=== PATIENT | female | born 1940 | race Caucasian/White ===

== ENCOUNTER → 2016-11-06 | Outpatient (CLI) | payer MEDICARE ==
[~2016-11-06] MED LIST: ACET325T14 PO; ACYC-113 PO; AZIT500T4 PO; CEFD300C2 PO; CHOL5000 PO; CHOL500015 PO; DEXT30DR5 LEFTEYE; DIPH1TAB PO; DORZ10DR PO; GABA300C10 PO; GUAI-103 PO; INFL100V IV; LATA2.5D2 RIGHTEYE; METO50TA82 PO; OMEP-110 PO; SERT100T5 PO; TIMO5DRO5 RIGHTEYE; WARF5TAB7 PO; WARF7.5T6 PO
== END | disposition home or self-care (01) ==
LOC: CFH 11:47
PROVIDERS: ATTEND Family Medicine
DX: R19.01 Right upper quadrant abdominal swelling, mass and lump (principal)
CPT/HCPCS: 76700

== ENCOUNTER 2018-01-20 20:40 | Inpatient (IN) | payer MEDICARE ==
[~2018-01-20] VITALS: Ht 170.2 cm; Wt 113.0 kg
[~2018-01-20 20:40] MED LIST changes: -AZIT500T4 PO; +AZIT500T5 PO; -CEFD300C2 PO; +CEFD300C37 PO; +WARF-36 PO; -WARF5TAB7 PO; +WARF7.5T46 PO; -WARF7.5T6 PO
[2018-01-20] MEDS ORDERED: SODIUM CHLORIDE FLUSH 10ML SYR IVF ONE (21:00)
[2018-01-20] MEDS ORDERED: SODIUM CHLORIDE 0.9% 1,000ML IVBOLUS ONE (21:00)
[2018-01-20 21:03] LABS: BASOPHILS # (AUTO) 0.04 x10^3/uL (0-0.1); BASOPHILS % (AUTO) 0 % (0-1); EOSINOPHILS # (AUTO) 0.31 x10^3/uL (0-0.4); EOSINOPHILS % (AUTO) 3 % (1-7); LYMPHOCYTES # (AUTO) 4.53 x10^3/uL (1-3.4); LYMPHOCYTES % (AUTO) 42 % (22-44); MD NO; MEAN CORPUSCULAR HGB CONC 33.5 g/dL (32.4-35.8); MEAN CORPUSCULAR VOLUME 92.6 fL (80-100); MEAN PLATELET VOLUME 7.6 fL (7.4-10.4); MONOCYTES % (AUTO) 10 % (2-9); NEUTROPHILS # (AUTO) 4.85 x10^3/uL (1.8-6.8); NEUTROPHILS % (AUTO) 45 % (42-75); PLATELET COUNT 277 x10^3/uL (130-400); RED BLOOD COUNT 4.39 x10^6/uL (3.82-5.3); RED CELL DISTRIBUTION WIDTH 14.1 % (9.6-15.2)
[2018-01-20 21:12] LABS: INTERNATIONAL NORMALIZED RATIO 2.37 (0.93-1.1)
[2018-01-20 21:14] LABS: ALANINE AMINOTRANSFERASE 21 U/L (12-78); ALBUMIN 3.7 g/dL (3.4-5.0); ANION GAP 9 mmol/L (5-15); CALCIUM 8.9 mg/dL (8.5-10.1); CHLORIDE 111 mmol/L (98-107); CREATININE 1.05 mg/dL (0.55-1.02)
[2018-01-20 21:19] LABS: ALKALINE PHOSPHATASE 101 U/L (45-117); BILIRUBIN,TOTAL 0.3 mg/dL (0.2-1.0); TOTAL PROTEIN 8.4 g/dL (6.4-8.2); TROPONIN I < 0.015 ng/mL (0.000-0.045)
[2018-01-21] MEDS ORDERED: TIMOLOL OPHTH 0.5%, 5ML RIGHTEYE SCH (00:30)
[2018-01-21] MEDS ORDERED: POLYETHYLENE GLYCOL 17 GM PACKET PO PRN (00:30)
[2018-01-21] MEDS ORDERED: BISACODYL 10 MG SUPP PR PRN (00:30)
[2018-01-21] MEDS ORDERED: ACETAMINOPHEN 325 MG TABLET PO PRN (00:30)
[2018-01-21] MEDS ORDERED: ONDANSETRON 2MG/ML, 2ML IVPush PRN ×2 (00:30)
[2018-01-21] MEDS ORDERED: ARTIFICIAL TEARS 15 DROP/ML BOTTLE LEFTEYE PRN (00:30)
[2018-01-21] MEDS ORDERED: SERTRALINE 100MG TABLET PO SCH (00:30)
[2018-01-21 00:36] VITALS: BP 150/99
[2018-01-21] MEDS ORDERED: GABAPENTIN 300 MG CAPSULE ONE (01:45)
[2018-01-21] MEDS ORDERED: GABAPENTIN 300 MG CAPSULE PO ONE (02:00)
[2018-01-21 05:08] LABS: BASOPHILS # (AUTO) 0.04 x10^3/uL (0-0.1); BASOPHILS % (AUTO) 0 % (0-1); EOSINOPHILS # (AUTO) 0.24 x10^3/uL (0-0.4); EOSINOPHILS % (AUTO) 3 % (1-7); LYMPHOCYTES # (AUTO) 3.47 x10^3/uL (1-3.4); LYMPHOCYTES % (AUTO) 38 % (22-44); MD NO; MEAN CORPUSCULAR HEMOGLOBIN 30.8 pg (27.0-34.8); MEAN CORPUSCULAR HGB CONC 33.4 g/dL (32.4-35.8); MEAN CORPUSCULAR VOLUME 92.2 fL (80-100); MONOCYTES # (AUTO) 0.87 x10^3/uL (0.2-0.8); MONOCYTES % (AUTO) 9 % (2-9); NEUTROPHILS # (AUTO) 4.59 x10^3/uL (1.8-6.8); NEUTROPHILS % (AUTO) 50 % (42-75); PLATELET COUNT 224 x10^3/uL (130-400); RED BLOOD COUNT 3.94 x10^6/uL (3.82-5.3); RED CELL DISTRIBUTION WIDTH 13.9 % (9.6-15.2)
[2018-01-21 05:20] LABS: ALBUMIN 3.1 g/dL (3.4-5.0); ANION GAP 5 mmol/L (5-15); CALCIUM 8.4 mg/dL (8.5-10.1); CHLORIDE 113 mmol/L (98-107)
[2018-01-21 05:23] LABS: ALANINE AMINOTRANSFERASE 15 U/L (12-78); ALKALINE PHOSPHATASE 81 U/L (45-117); BILIRUBIN,TOTAL 0.5 mg/dL (0.2-1.0); CREATININE 0.75 mg/dL (0.55-1.02); TROPONIN I < 0.015 ng/mL (0.000-0.045)
[2018-01-21 07:15] VITALS: BP 115/64
[2018-01-21] MEDS ORDERED: LATANOPROST OPHTH 0.005%, 2.5ML RIGHTEYE SCH (09:00)
[2018-01-21] MEDS ORDERED: OMEPRAZOLE 20 MG CAPSULE.DR PO SCH (09:00)
[2018-01-21] MEDS ORDERED: DORZOLAMIDE OPHTH 2%, 10ML EACHEYE SCH (09:00)
[2018-01-21] MEDS ORDERED: GABAPENTIN 300 MG CAPSULE PO SCH (09:00)
[2018-01-21] MEDS ORDERED: ACYCLOVIR 200 MG CAPSULE PO SCH (09:00)
[2018-01-21] MEDS ORDERED: TEMPLATE NON-FORMULARY MED. (Cholecalciferol (Vitamin D3)** (Vitamin D3**) 5,000 UNIT) PO SCH (09:00)
[2018-01-21] MEDS ORDERED: METOPROLOL TARTRATE 50 MG TABLET PO SCH (09:00)
[2018-01-21] MEDS ORDERED: CHOLECALCIFEROL 1,000 UNIT TABLET PO SCH (09:00)
[2018-01-21] MEDS ORDERED: SENNA/DOCUSATE TABLET PO SCH (09:00)
[2018-01-21] MEDS ORDERED: SODIUM CHLORIDE FLUSH 10ML SYR IVF SCH (09:00)
[2018-01-21] MEDS: LACTOBACILLUS CHEW TABLET PO SCH ×2 (09:30→16:18)
[2018-01-21 13:00] VITALS: BP 106/67
[2018-01-21 14:18] VITALS: BP 106/67
[2018-01-21] MEDS ORDERED: ACID1TAB7 PO (15:59)
[2018-01-21] MEDS ORDERED: WARFARIN 5 MG TABLET PO-COUM SCH (18:00)
[2018-01-22] MEDS ORDERED: WARFARIN 7.5 MG TABLET PO-COUM SCH (18:00)
== END 2018-01-21 16:56 | disposition home or self-care (01) | DRG 309 ==
LOC: ED 22:37 → EDIP 23:45 → 5SO 01-21 00:24 → DCLOUNGE 01-21 16:38
PROVIDERS: ADMIT Hospitalist; ATTEND Hospitalist
DX: I48.0 Paroxysmal atrial fibrillation (principal); D68.59 Other primary thrombophilia; I10 Essential (primary) hypertension; E78.5 Hyperlipidemia, unspecified; H40.9 Unspecified glaucoma; I45.10 Unspecified right bundle-branch block; K21.9 Gastro-esophageal reflux disease without esophagitis; Z96.652 Presence of left artificial knee joint; Z96.643 Presence of artificial hip joint, bilateral; K44.9 Diaphragmatic hernia without obstruction or gangrene; M06.9 Rheumatoid arthritis, unspecified; M19.90 Unspecified osteoarthritis, unspecified site; E66.01 Morbid (severe) obesity due to excess calories; M21.372 Foot drop, left foot; Z88.8 Allergy status to other drugs, medicaments and biological substances; Z91.041 Radiographic dye allergy status; Z90.49 Acquired absence of other specified parts of digestive tract; Z90.79 Acquired absence of other genital organ(s); Z90.722 Acquired absence of ovaries, bilateral; Z79.899 Other long term (current) drug therapy; Z86.718 Personal history of other venous thrombosis and embolism; Z79.01 Long term (current) use of anticoagulants; Z80.0 Family history of malignant neoplasm of digestive organs; Z90.710 Acquired absence of both cervix and uterus; Z82.49 Family history of ischemic heart disease and other diseases of the circulatory system; Z68.39 Body mass index [BMI] 39.0-39.9, adult
CPT/HCPCS: 36415; 71045; 80053; 83735; 84443; 84484; 85025; 85610; 85730; 93005; 93306; 93970; 99285; J7030

== ENCOUNTER 2018-02-21 09:31 | Inpatient (IN) | payer MEDICARE ==
[~2018-02-21] VITALS: Ht 170.2 cm; Wt 110.3 kg
[~2018-02-21 09:31] MED LIST changes: +ACID1TAB7 PO
[2018-02-21 09:56] VITALS: BP 140/86
[2018-02-21] MEDS ORDERED: PLEASE ENTER HEIGHT AND WEIGHT MC SCH (10:00)
[2018-02-21] MEDS ORDERED: ZOLPIDEM 5MG TABLET PO PRN ×2 (10:00→15:00)
[2018-02-21] MEDS ORDERED: DIPHENHYDRAMINE 50 MG CAPSULE PO PRN (10:00)
[2018-02-21 10:40] LABS: BASOPHILS # (AUTO) 0.05 x10^3/uL (0-0.1); BASOPHILS % (AUTO) 1 % (0-1); EOSINOPHILS # (AUTO) 0.19 x10^3/uL (0-0.4); EOSINOPHILS % (AUTO) 2 % (1-7); LYMPHOCYTES # (AUTO) 3.16 x10^3/uL (1-3.4); LYMPHOCYTES % (AUTO) 40 % (22-44); MD NO; MEAN CORPUSCULAR HEMOGLOBIN 30.9 pg (27.0-34.8); MEAN CORPUSCULAR HGB CONC 33.6 g/dL (32.4-35.8); MEAN PLATELET VOLUME 8.1 fL (7.4-10.4); MONOCYTES # (AUTO) 0.65 x10^3/uL (0.2-0.8); MONOCYTES % (AUTO) 8 % (2-9); NEUTROPHILS # (AUTO) 3.88 x10^3/uL (1.8-6.8); NEUTROPHILS % (AUTO) 49 % (42-75); PLATELET COUNT 258 x10^3/uL (130-400); RED BLOOD COUNT 4.22 x10^6/uL (3.82-5.3); RED CELL DISTRIBUTION WIDTH 14.2 % (9.6-15.2)
[2018-02-21 10:49] LABS: ALBUMIN 3.6 g/dL (3.4-5.0); ANION GAP 6 mmol/L (5-15); CHLORIDE 110 mmol/L (98-107)
[2018-02-21 10:53] LABS: ALANINE AMINOTRANSFERASE 15 U/L (12-78); ALKALINE PHOSPHATASE 74 U/L (45-117); BILIRUBIN,TOTAL 0.6 mg/dL (0.2-1.0); CREATININE 0.69 mg/dL (0.55-1.02); TOTAL PROTEIN 7.7 g/dL (6.4-8.2)
[2018-02-21 10:54] LABS: INTERNATIONAL NORMALIZED RATIO 1.34 (0.93-1.1); PROTHROMBIN TIME 13.9 Seconds (9.6-11.5)
[2018-02-21] MEDS ORDERED: FENTANYL PF 100 MCG/2ML ONE (11:57)
[2018-02-21] MEDS ORDERED: MIDAZOLAM 1 MG/ML, 2ML ONE ×2 (11:57→12:34)
[2018-02-21] MEDS ORDERED: CEFAZOLIN PMX 1GM/50ML 50 ML ONE (11:58)
[2018-02-21] MEDS ORDERED: LIDOCAINE-MPF 2% ,5ML ONE ×3 (11:58→12:58)
[2018-02-21] MEDS ORDERED: CEFAZOLIN 1,000 MG ONE (11:58)
[2018-02-21] MEDS ORDERED: CEFAZOLIN PMX 1GM/50ML 50 ML IVPB ONE ×2 (12:00→16:00)
[2018-02-21] MEDS ORDERED: DIPHENHYDRAMINE 50 MG/ML, 1ML ONE (12:34)
[2018-02-21 13:56] VITALS: BP 136/74
[2018-02-21] MEDS: SODIUM CHLORIDE 0.9% 1,000 ML IV SCH ×2 (15:07→18:03)
[2018-02-21 15:19] VITALS: BP 128/80
[2018-02-21 15:40] VITALS: BP 106/66
[2018-02-21] MEDS: SOTALOL 80MG TABLET PO SCH (18:03)
[2018-02-21 19:33] VITALS: BP 140/78
[2018-02-21] MEDS ORDERED: GABAPENTIN 300 MG CAPSULE PO SCH (21:00)
[2018-02-21] MEDS: CEFAZOLIN PMX 1GM/50ML 50 ML IV SCH (21:15)
[2018-02-21] MEDS: GABAPENTIN 300 MG CAPSULE PO SCH (21:16)
[2018-02-21] MEDS: ACETAMINOPHEN 325 MG TABLET PO PRN (21:16)
[2018-02-21] MEDS: DIPHENHYDRAMINE 50 MG CAPSULE PO PRN (21:59)
[2018-02-22] MEDS ORDERED: CEFAZOLIN PMX 1GM/50ML 50 ML IV SCH (00:30)
[2018-02-22] MEDS: SODIUM CHLORIDE 0.9% 1,000 ML IV SCH ×2 (00:46→07:43)
[2018-02-22 00:48] VITALS: BP 135/85
[2018-02-22] MEDS: CEFAZOLIN PMX 1GM/50ML 50 ML IV SCH (05:00)
[2018-02-22] MEDS: SOTALOL 80MG TABLET PO SCH ×2 (05:01→18:21)
[2018-02-22] MEDS: ACETAMINOPHEN 325 MG TABLET PO PRN ×3 (05:01→20:03)
[2018-02-22 05:28] LABS: BASOPHILS # (AUTO) 0.03 x10^3/uL (0-0.1); BASOPHILS % (AUTO) 0 % (0-1); EOSINOPHILS # (AUTO) 0.18 x10^3/uL (0-0.4); EOSINOPHILS % (AUTO) 2 % (1-7); LYMPHOCYTES # (AUTO) 2.79 x10^3/uL (1-3.4); LYMPHOCYTES % (AUTO) 37 % (22-44); MD NO; MEAN CORPUSCULAR HEMOGLOBIN 30.7 pg (27.0-34.8); MEAN CORPUSCULAR HGB CONC 33.2 g/dL (32.4-35.8); MEAN CORPUSCULAR VOLUME 92.4 fL (80-100); MEAN PLATELET VOLUME 8.1 fL (7.4-10.4); MONOCYTES # (AUTO) 0.69 x10^3/uL (0.2-0.8); MONOCYTES % (AUTO) 9 % (2-9); NEUTROPHILS # (AUTO) 3.84 x10^3/uL (1.8-6.8); NEUTROPHILS % (AUTO) 51 % (42-75); PLATELET COUNT 217 x10^3/uL (130-400); RED BLOOD COUNT 4.16 x10^6/uL (3.82-5.3); RED CELL DISTRIBUTION WIDTH 14.5 % (9.6-15.2)
[2018-02-22 05:36] LABS: ALANINE AMINOTRANSFERASE 15 U/L (12-78); ALBUMIN 3.2 g/dL (3.4-5.0); ANION GAP 8 mmol/L (5-15); CALCIUM 8.4 mg/dL (8.5-10.1); CHLORIDE 110 mmol/L (98-107); CREATININE 0.61 mg/dL (0.55-1.02)
[2018-02-22 05:38] LABS: ALKALINE PHOSPHATASE 70 U/L (45-117); BILIRUBIN,TOTAL 0.5 mg/dL (0.2-1.0); TOTAL PROTEIN 7.1 g/dL (6.4-8.2)
[2018-02-22 05:44] LABS: INTERNATIONAL NORMALIZED RATIO 1.3 (0.93-1.1); PROTHROMBIN TIME 13.4 Seconds (9.6-11.5)
[2018-02-22 07:20] VITALS: BP 127/81
[2018-02-22] MEDS ORDERED: OMEPRAZOLE 20 MG CAPSULE.DR PO SCH (07:30)
[2018-02-22] MEDS: GABAPENTIN 300 MG CAPSULE PO SCH ×2 (07:36→20:03)
[2018-02-22] MEDS: OMEPRAZOLE 20 MG CAPSULE.DR PO SCH (07:36)
[2018-02-22] MEDS ORDERED: WARFARIN MODERAT DOSE PROTOCOL XX PRN (10:30)
[2018-02-22 13:10] VITALS: BP 108/68
[2018-02-22 13:26] VITALS: BP 116/85
[2018-02-22 13:45] VITALS: BP 112/74
[2018-02-22] MEDS ORDERED: WARFARIN 7.5 MG TABLET PO-COUM ONE (18:00)
[2018-02-22 18:57] VITALS: BP 145/88
[2018-02-22] MEDS: DIPHENHYDRAMINE 50 MG CAPSULE PO PRN (21:59)
[2018-02-23 00:46] VITALS: BP 129/78
[2018-02-23] MEDS: SOTALOL 80MG TABLET PO SCH ×2 (06:11→18:06)
[2018-02-23] MEDS: OMEPRAZOLE 20 MG CAPSULE.DR PO SCH (07:03)
[2018-02-23] MEDS: GABAPENTIN 300 MG CAPSULE PO SCH ×2 (07:03→20:02)
[2018-02-23 07:28] VITALS: BP 143/83
[2018-02-23] MEDS: ACETAMINOPHEN 325 MG TABLET PO PRN ×3 (07:33→22:10)
[2018-02-23] MEDS ORDERED: PROPOFOL 10 MG/ML, 20ML ONE (14:22)
[2018-02-23 15:03] VITALS: BP 108/74
[2018-02-23 15:31] LABS: INTERNATIONAL NORMALIZED RATIO 1.17 (0.93-1.1); PROTHROMBIN TIME 12.1 Seconds (9.6-11.5)
[2018-02-23] MEDS ORDERED: WARFARIN 7.5 MG TABLET PO-COUM ONE (18:00)
[2018-02-23] MEDS ORDERED: WARFARIN 3 MG TABLET PO-COUM ONE (18:00)
[2018-02-23 19:22] VITALS: BP 111/74
[2018-02-23] MEDS: DIPHENHYDRAMINE 50 MG CAPSULE PO PRN (22:11)
[2018-02-24 01:13] VITALS: BP 118/73
[2018-02-24] MEDS: ACETAMINOPHEN 325 MG TABLET PO PRN ×3 (02:22→12:14)
[2018-02-24 05:51] LABS: INTERNATIONAL NORMALIZED RATIO 1.19 (0.93-1.1); PROTHROMBIN TIME 12.3 Seconds (9.6-11.5)
[2018-02-24] MEDS: SOTALOL 80MG TABLET PO SCH (06:02)
[2018-02-24 07:56] VITALS: BP 146/73
[2018-02-24] MEDS: OMEPRAZOLE 20 MG CAPSULE.DR PO SCH (08:07)
[2018-02-24] MEDS: GABAPENTIN 300 MG CAPSULE PO SCH (08:08)
[2018-02-24] MEDS ORDERED: ACET325T14 PO (10:55)
[2018-02-24] MEDS ORDERED: SOTA80TA18 PO (10:55)
[2018-02-24 13:27] VITALS: BP 146/73
[2018-02-24 14:38] VITALS: BP 131/83
[2018-02-24] MEDS ORDERED: WARFARIN 7.5 MG TABLET PO-COUM ONE (18:00)
== END 2018-02-24 16:06 | disposition home or self-care (01) | DRG 242 ==
LOC: CACL 09:31 → 5SO 13:55 → CACL 14:36 → 5SO 14:37 → DCLOUNGE 02-24 15:31
PROVIDERS: ADMIT Internal Medicine Cardiovascular Disease; ATTEND Internal Medicine Cardiovascular Disease
PROC: 0JH606Z Insertion of Pacemaker, Dual Chamber into Chest Subcutaneous Tissue and Fascia, Open Approach (ICD-10-PCS; principal; 2018-02-21)
PROC: 02H63JZ Insertion of Pacemaker Lead into Right Atrium, Percutaneous Approach (ICD-10-PCS; 2018-02-21)
PROC: 02HK3JZ Insertion of Pacemaker Lead into Right Ventricle, Percutaneous Approach (ICD-10-PCS; 2018-02-21)
PROC: B24BZZ4 Ultrasonography of Heart with Aorta, Transesophageal (ICD-10-PCS; 2018-02-23)
PROC: 5A2204Z Restoration of Cardiac Rhythm, Single (ICD-10-PCS; 2018-02-23)
DX: I49.5 Sick sinus syndrome (principal); I50.33 Acute on chronic diastolic (congestive) heart failure; D68.69 Other thrombophilia; I10 Essential (primary) hypertension; E78.5 Hyperlipidemia, unspecified; I48.91 Unspecified atrial fibrillation; Z87.891 Personal history of nicotine dependence; Z95.0 Presence of cardiac pacemaker
CPT/HCPCS: 33208; 36415; 71045; 80053; 85025; 85610; 85730; 92960; 93005; 93312; 93321; 93325; 99156; 99157; C1779; C1785; C1892; J0690; J2250; J2704; J3010; J3490; J1200

== ENCOUNTER 2019-03-17 12:29 | Outpatient (CLI) | payer MEDICARE | END 2019-03-17 23:59 | disposition home or self-care (01) | LOC: CFH 12:29 | PROVIDERS: ATTEND Internal Medicine Cardiovascular Disease | DX: Z01.810 Encounter for preprocedural cardiovascular examination (principal); K44.9 Diaphragmatic hernia without obstruction or gangrene | CPT/HCPCS: 36415; 71046; 80048; 85610; 85730 ==

== ENCOUNTER → 2019-08-23 | Outpatient (CLI) | payer MEDICARE ==
[~2019-08-23] MED LIST changes: +AZIT500T10 PO; -AZIT500T5 PO; +SERT100T32 PO; -SERT100T5 PO; +SOTA80TA18 PO
== END | disposition home or self-care (01) ==
LOC: CVU 15:00
PROVIDERS: ATTEND Physician Assistant Surgical
DX: M79.661 Pain in right lower leg (principal); M79.662 Pain in left lower leg; M79.671 Pain in right foot; M79.672 Pain in left foot; M54.40 Lumbago with sciatica, unspecified side; M19.90 Unspecified osteoarthritis, unspecified site; I48.91 Unspecified atrial fibrillation; I10 Essential (primary) hypertension; Z86.718 Personal history of other venous thrombosis and embolism
CPT/HCPCS: 93922

== ENCOUNTER 2019-10-16 17:02 | Inpatient (IN) | payer MEDICARE ==
[~2019-10-16] VITALS: Ht 170.2 cm; Wt 97.4 kg
[~2019-10-16 17:02] MED LIST changes: +DIPH25CA61 PO; +ENOX80SY4 SQ; +OXYC5TAB3 PO; +PHEN100T90 PO; +PROP20TA PO; +WARF7.5T PO-COUM
[2019-10-16 18:06] LABS: BASOPHILS # (AUTO) 0.06 x10^3/uL (0-0.1); BASOPHILS % (AUTO) 1 % (0-1); EOSINOPHILS # (AUTO) 0.32 x10^3/uL (0-0.4); EOSINOPHILS % (AUTO) 3 % (1-7); LYMPHOCYTES # (AUTO) 2.59 x10^3/uL (1-3.4); LYMPHOCYTES % (AUTO) 28 % (22-44); MD NO; MEAN CORPUSCULAR HEMOGLOBIN 29.1 pg (27.0-34.8); MEAN CORPUSCULAR HGB CONC 32.3 g/dL (32.4-35.8); MEAN CORPUSCULAR VOLUME 90.1 fL (80-100); MEAN PLATELET VOLUME 8.7 fL (7.4-10.4); MONOCYTES # (AUTO) 1.05 x10^3/uL (0.2-0.8); MONOCYTES % (AUTO) 11 % (2-9); NEUTROPHILS # (AUTO) 5.31 x10^3/uL (1.8-6.8); NEUTROPHILS % (AUTO) 57 % (42-75); PLATELET COUNT 175 x10^3/uL (130-400); RED BLOOD COUNT 4.22 x10^6/uL (3.82-5.3); RED CELL DISTRIBUTION WIDTH 16.4 % (9.6-15.2)
[2019-10-16 18:11] LABS: INTERNATIONAL NORMALIZED RATIO 2.35 (0.93-1.1); PROTHROMBIN TIME 25.1 Seconds (9.6-11.5)
[2019-10-16 18:13] LABS: ALBUMIN 3.3 g/dL (3.4-5.0); ANION GAP 9 mmol/L (5-15); CHLORIDE 106 mmol/L (98-107); CREATININE 0.66 mg/dL (0.55-1.02)
[2019-10-16] MEDS ORDERED: HEPARIN 5,000 UNITS/ML, 1ML IV ONE (21:00)
[2019-10-16] MEDS ORDERED: HEPARIN 5,000 UNITS/ML, 1ML ONE (21:06)
[2019-10-16] MEDS ORDERED: HEPARIN 25,000 UNITS/250ML PMX 250 ML ONE (21:07)
[2019-10-16] MEDS ORDERED: SODIUM CHLORIDE FLUSH 10ML SYR IVF PRN (23:00)
[2019-10-16] MEDS ORDERED: LIDODERM 5% PATCH TD PRN (23:30)
[2019-10-16] MEDS ORDERED: TEMAZEPAM 15 MG CAPSULE PO PRN (23:30)
[2019-10-16] MEDS ORDERED: DOCUSATE 100 MG CAPSULE PO PRN (23:30)
[2019-10-16] MEDS ORDERED: ONDANSETRON ODT 4 MG PO PRN (23:30)
[2019-10-16] MEDS ORDERED: hydrALAzine 20 MG/ML, 1ML IVPush PRN (23:30)
[2019-10-17 01:29] VITALS: BP 129/81
[2019-10-17] MEDS: ACETAMINOPHEN 325 MG TABLET PO PRN ×3 (02:28→20:19)
[2019-10-17 02:35] LABS: BASOPHILS # (AUTO) 0.03 x10^3/uL (0-0.1); BASOPHILS % (AUTO) 0 % (0-1); EOSINOPHILS # (AUTO) 0.32 x10^3/uL (0-0.4); EOSINOPHILS % (AUTO) 3 % (1-7); LYMPHOCYTES # (AUTO) 3.14 x10^3/uL (1-3.4); LYMPHOCYTES % (AUTO) 32 % (22-44); MD NO; MEAN CORPUSCULAR HEMOGLOBIN 29.1 pg (27.0-34.8); MEAN CORPUSCULAR HGB CONC 32.3 g/dL (32.4-35.8); MEAN CORPUSCULAR VOLUME 89.9 fL (80-100); MEAN PLATELET VOLUME 8.9 fL (7.4-10.4); MONOCYTES # (AUTO) 1.06 x10^3/uL (0.2-0.8); MONOCYTES % (AUTO) 11 % (2-9); NEUTROPHILS # (AUTO) 5.35 x10^3/uL (1.8-6.8); NEUTROPHILS % (AUTO) 54 % (42-75); PLATELET COUNT 195 x10^3/uL (130-400); RED BLOOD COUNT 4.13 x10^6/uL (3.82-5.3); RED CELL DISTRIBUTION WIDTH 16.7 % (9.6-15.2)
[2019-10-17 02:44] LABS: ANION GAP 8 mmol/L (5-15); CALCIUM 9.1 mg/dL (8.5-10.1); CHLORIDE 107 mmol/L (98-107); CREATININE 0.64 mg/dL (0.55-1.02)
[2019-10-17] MEDS: HEPARIN 5,000 UNITS/ML, 1ML IV PRN ×3 (03:05→23:44)
[2019-10-17] MEDS: HEPARIN 25,000 UNITS/250ML PMX 250 ML IV PRN ×2 (03:07→23:43)
[2019-10-17 08:35] VITALS: BP 122/77
[2019-10-17] MEDS: OXYcodone IR 5MG TABLET PO SCH ×2 (14:00→20:00)
[2019-10-17] MEDS ORDERED: CHOLECALCIFEROL 5,000u TAB PO SCH (14:00)
[2019-10-17] MEDS ORDERED: DIPHENOXYLATE/ATROPINE TABLET PO PRN (14:00)
[2019-10-17] MEDS: GABAPENTIN 300 MG CAPSULE PO SCH ×2 (14:22→20:05)
[2019-10-17] MEDS: PHENAZOPYRIDINE 100 MG TABLET PO SCH ×2 (14:32→20:08)
[2019-10-17 14:55] VITALS: BP 119/73
[2019-10-17] MEDS: PROPRANOLOL 20 MG TABLET PO SCH (15:12)
[2019-10-17] MEDS: OMEPRAZOLE 20 MG CAPSULE.DR PO SCH (15:12)
[2019-10-17 18:47] LABS: INTERNATIONAL NORMALIZED RATIO 2.32 (0.93-1.1); PROTHROMBIN TIME 24.8 Seconds (9.6-11.5)
[2019-10-17] MEDS ORDERED: WARFARIN 3 MG TABLET PO-COUM ONE (19:30)
[2019-10-17] MEDS: SERTRALINE 50MG TABLET PO SCH (20:05)
[2019-10-17] MEDS: DIPHENHYDRAMINE 50 MG CAPSULE PO SCH (20:05)
[2019-10-17] MEDS: TIMOLOL OPHTH 0.5%, 5ML RIGHTEYE SCH (20:09)
[2019-10-17] MEDS: DORZOLAMIDE OPHTH 2%, 10ML RIGHTEYE SCH (20:09)
[2019-10-17] MEDS: LATANOPROST OPHTH 0.005%, 2.5ML RIGHTEYE SCH (20:09)
[2019-10-17] MEDS ORDERED: DIPHENHYDRAMINE 25 MG CAPSULE PO SCH (21:00)
[2019-10-17] MEDS ORDERED: SERTRALINE 100MG TABLET PO SCH (21:00)
[2019-10-17] MEDS ORDERED: GABAPENTIN 300 MG CAPSULE PO SCH (21:00)
[2019-10-17] MEDS ORDERED: TIMOLOL OPHTH 0.5%, 5ML RIGHTEYE SCH (21:00)
[2019-10-17] MEDS ORDERED: DORZOLAMIDE OPHTH 2%, 10ML EACHEYE SCH (21:00)
[2019-10-17 21:14] VITALS: BP 123/78
[2019-10-18] MEDS: OXYcodone IR 5MG TABLET PO SCH ×4 (02:00→19:59)
[2019-10-18 02:46] VITALS: BP 123/78
[2019-10-18 03:43] LABS: INTERNATIONAL NORMALIZED RATIO 2.24 (0.93-1.1); PROTHROMBIN TIME 23.9 Seconds (9.6-11.5)
[2019-10-18 03:50] LABS: ALBUMIN 2.7 g/dL (3.4-5.0); ANION GAP 6 mmol/L (5-15); CALCIUM 8.6 mg/dL (8.5-10.1); CHLORIDE 112 mmol/L (98-107); CREATININE 0.52 mg/dL (0.55-1.02)
[2019-10-18 03:57] LABS: BASOPHILS # (AUTO) 0.06 x10^3/uL (0-0.1); BASOPHILS % (AUTO) 1 % (0-1); EOSINOPHILS # (AUTO) 0.28 x10^3/uL (0-0.4); EOSINOPHILS % (AUTO) 4 % (1-7); LYMPHOCYTES # (AUTO) 3.16 x10^3/uL (1-3.4); LYMPHOCYTES % (AUTO) 45 % (22-44); MD NO; MEAN CORPUSCULAR HEMOGLOBIN 29.2 pg (27.0-34.8); MEAN CORPUSCULAR HGB CONC 32.5 g/dL (32.4-35.8); MEAN CORPUSCULAR VOLUME 89.8 fL (80-100); MEAN PLATELET VOLUME 8.9 fL (7.4-10.4); MONOCYTES # (AUTO) 0.86 x10^3/uL (0.2-0.8); MONOCYTES % (AUTO) 12 % (2-9); NEUTROPHILS % (AUTO) 38 % (42-75); PLATELET COUNT 180 x10^3/uL (130-400); RED BLOOD COUNT 3.75 x10^6/uL (3.82-5.3); RED CELL DISTRIBUTION WIDTH 16.5 % (9.6-15.2)
[2019-10-18] MEDS: OMEPRAZOLE 20 MG CAPSULE.DR PO SCH (05:34)
[2019-10-18] MEDS: PROPRANOLOL 20 MG TABLET PO SCH ×2 (07:22→09:05)
[2019-10-18 08:07] VITALS: BP 136/84
[2019-10-18] MEDS ORDERED: LATANOPROST OPHTH 0.005%, 2.5ML RIGHTEYE SCH (09:00)
[2019-10-18] MEDS ORDERED: OMEPRAZOLE 20 MG CAPSULE.DR PO SCH (09:00)
[2019-10-18] MEDS ORDERED: WARFARIN MECH. VALVE PROTOCOL 2.5 to 3.5 XX SCH (09:00)
[2019-10-18] MEDS: PHENAZOPYRIDINE 100 MG TABLET PO SCH ×2 (09:00→20:00)
[2019-10-18] MEDS: DORZOLAMIDE OPHTH 2%, 10ML RIGHTEYE SCH ×2 (09:04→20:27)
[2019-10-18] MEDS: GABAPENTIN 300 MG CAPSULE PO SCH ×2 (09:05→19:59)
[2019-10-18] MEDS: HEPARIN 5,000 UNITS/ML, 1ML IV PRN (13:58)
[2019-10-18 14:14] VITALS: BP 98/64
[2019-10-18 14:52] VITALS: BP 102/63
[2019-10-18] MEDS: HEPARIN 25,000 UNITS/250ML PMX 250 ML IV PRN (17:41)
[2019-10-18] MEDS ORDERED: WARFARIN 3 MG TABLET PO-COUM ONE (18:00)
[2019-10-18] MEDS: DIPHENHYDRAMINE 50 MG CAPSULE PO SCH (20:00)
[2019-10-18] MEDS: SERTRALINE 50MG TABLET PO SCH (20:00)
[2019-10-18] MEDS: LATANOPROST OPHTH 0.005%, 2.5ML RIGHTEYE SCH (20:01)
[2019-10-18] MEDS: TIMOLOL OPHTH 0.5%, 5ML RIGHTEYE SCH (20:01)
[2019-10-18 20:13] VITALS: BP 127/67
[2019-10-18] MEDS: ACETAMINOPHEN 325 MG TABLET PO PRN (21:08)
[2019-10-19 00:52] VITALS: BP 136/62
[2019-10-19] MEDS: OXYcodone IR 5MG TABLET PO SCH ×5 (01:04→20:00)
[2019-10-19 01:28] LABS: INTERNATIONAL NORMALIZED RATIO 2.17 (0.93-1.1); PROTHROMBIN TIME 23.2 Seconds (9.6-11.5)
[2019-10-19] MEDS: OMEPRAZOLE 20 MG CAPSULE.DR PO SCH (05:51)
[2019-10-19 07:43] VITALS: BP 119/72
[2019-10-19] MEDS: PROPRANOLOL 20 MG TABLET PO SCH ×2 (09:00→09:25)
[2019-10-19] MEDS: PHENAZOPYRIDINE 100 MG TABLET PO SCH ×3 (09:00→19:59)
[2019-10-19] MEDS: ACYCLOVIR 200 MG CAPSULE PO SCH (09:25)
[2019-10-19] MEDS: GABAPENTIN 300 MG CAPSULE PO SCH ×2 (09:25→20:00)
[2019-10-19] MEDS: DORZOLAMIDE OPHTH 2%, 10ML RIGHTEYE SCH ×2 (09:25→20:04)
[2019-10-19] MEDS: HEPARIN 25,000 UNITS/250ML PMX 250 ML IV PRN (10:20)
[2019-10-19 14:37] VITALS: BP 135/74
[2019-10-19 17:05] LABS: CULTURE INDICATED? YES; MICROSCOPIC INDICATED
[2019-10-19] MEDS ORDERED: WARFARIN 7.5 MG TABLET PO-COUM ONE (18:00)
[2019-10-19 19:22] VITALS: BP 102/61
[2019-10-19] MEDS: TIMOLOL OPHTH 0.5%, 5ML RIGHTEYE SCH (19:59)
[2019-10-19] MEDS: DIPHENHYDRAMINE 50 MG CAPSULE PO SCH (20:00)
[2019-10-19] MEDS: SERTRALINE 50MG TABLET PO SCH (20:00)
[2019-10-19] MEDS: ACETAMINOPHEN 325 MG TABLET PO PRN (20:03)
[2019-10-19] MEDS: LATANOPROST OPHTH 0.005%, 2.5ML RIGHTEYE SCH (20:04)
[2019-10-20 00:38] VITALS: BP 101/66
[2019-10-20] MEDS: OXYcodone IR 5MG TABLET PO SCH ×4 (01:53→20:00)
[2019-10-20] MEDS: HEPARIN 25,000 UNITS/250ML PMX 250 ML IV PRN ×2 (03:16→20:13)
[2019-10-20] MEDS: OMEPRAZOLE 20 MG CAPSULE.DR PO SCH (05:40)
[2019-10-20] MEDS: ACETAMINOPHEN 325 MG TABLET PO PRN ×4 (05:43→20:24)
[2019-10-20 06:09] LABS: INTERNATIONAL NORMALIZED RATIO 2.19 (0.93-1.1); PROTHROMBIN TIME 23.4 Seconds (9.6-11.5)
[2019-10-20 07:05] VITALS: BP 126/75
[2019-10-20] MEDS: PROPRANOLOL 20 MG TABLET PO SCH ×2 (08:48→10:07)
[2019-10-20] MEDS: GABAPENTIN 300 MG CAPSULE PO SCH ×2 (10:07→20:20)
[2019-10-20] MEDS: PHENAZOPYRIDINE 100 MG TABLET PO SCH ×2 (10:08→20:20)
[2019-10-20] MEDS: DORZOLAMIDE OPHTH 2%, 10ML RIGHTEYE SCH ×2 (10:09→20:21)
[2019-10-20 13:18] VITALS: BP 102/67
[2019-10-20] MEDS: NITROFURANTOIN (MACROBID) 100 MG CAPSULE PO SCH ×2 (15:08→20:20)
[2019-10-20] MEDS ORDERED: WARFARIN 7.5 MG TABLET PO-COUM ONE (18:00)
[2019-10-20 20:01] VITALS: BP 115/71
[2019-10-20] MEDS: SERTRALINE 50MG TABLET PO SCH (20:20)
[2019-10-20] MEDS: DIPHENHYDRAMINE 50 MG CAPSULE PO SCH (20:20)
[2019-10-20] MEDS: LATANOPROST OPHTH 0.005%, 2.5ML RIGHTEYE SCH (20:21)
[2019-10-20] MEDS: TIMOLOL OPHTH 0.5%, 5ML RIGHTEYE SCH (20:21)
[2019-10-21 00:11] VITALS: BP 129/80
[2019-10-21] MEDS: OXYcodone IR 5MG TABLET PO SCH ×3 (02:00→14:00)
[2019-10-21 05:30] LABS: INTERNATIONAL NORMALIZED RATIO 2.28 (0.93-1.1); PROTHROMBIN TIME 24.4 Seconds (9.6-11.5)
[2019-10-21] MEDS: OMEPRAZOLE 20 MG CAPSULE.DR PO SCH (05:33)
[2019-10-21 07:44] VITALS: BP 143/83
[2019-10-21] MEDS: PROPRANOLOL 20 MG TABLET PO SCH ×2 (08:38→08:39)
[2019-10-21] MEDS: ACETAMINOPHEN 325 MG TABLET PO PRN (08:39)
[2019-10-21] MEDS: GABAPENTIN 300 MG CAPSULE PO SCH (08:39)
[2019-10-21] MEDS: ACYCLOVIR 200 MG CAPSULE PO SCH (08:39)
[2019-10-21] MEDS: NITROFURANTOIN (MACROBID) 100 MG CAPSULE PO SCH (08:39)
[2019-10-21] MEDS: PHENAZOPYRIDINE 100 MG TABLET PO SCH (08:39)
[2019-10-21] MEDS: DORZOLAMIDE OPHTH 2%, 10ML RIGHTEYE SCH (08:40)
[2019-10-21] MEDS: HEPARIN 25,000 UNITS/250ML PMX 250 ML IV PRN (10:51)
[2019-10-21] MEDS ORDERED: RIVA15TA PO (11:03)
[2019-10-21] MEDS ORDERED: NITR100C6 PO (11:03)
[2019-10-21 13:21] VITALS: BP 111/71
[2019-10-21] MEDS ORDERED: WARFARIN 2 MG TABLET PO-COUM ONE (18:00)
== END 2019-10-21 15:29 | disposition home or self-care (01) | DRG 300 ==
LOC: ED 20:30 → EDIP 22:36 → 3N 10-17 01:21
PROVIDERS: ADMIT Internal Medicine; ATTEND Internal Medicine Infectious Disease
DX: I82.412 Acute embolism and thrombosis of left femoral vein (principal); D68.59 Other primary thrombophilia; I48.19 Other persistent atrial fibrillation; F33.0 Major depressive disorder, recurrent, mild; N39.0 Urinary tract infection, site not specified; I49.5 Sick sinus syndrome; M21.372 Foot drop, left foot; M19.90 Unspecified osteoarthritis, unspecified site; E78.5 Hyperlipidemia, unspecified; Z96.643 Presence of artificial hip joint, bilateral; I82.432 Acute embolism and thrombosis of left popliteal vein; Z96.652 Presence of left artificial knee joint; I11.9 Hypertensive heart disease without heart failure; K58.0 Irritable bowel syndrome with diarrhea; Z79.01 Long term (current) use of anticoagulants; Z88.8 Allergy status to other drugs, medicaments and biological substances; Z80.0 Family history of malignant neoplasm of digestive organs; Z82.3 Family history of stroke; Z86.711 Personal history of pulmonary embolism; Z95.0 Presence of cardiac pacemaker
CPT/HCPCS: 36415; 80048; 80069; 81001; 82040; 83735; 85025; 85520; 85610; 87086; 93005; 96374; G0378; J1644

== ENCOUNTER 2020-01-02 11:36 | Outpatient (CLI) | payer MEDICARE ==
[~2020-01-02 11:36] MED LIST changes: +NITR100C6 PO; +RIVA15TA PO
== END 2020-01-02 23:59 | disposition home or self-care (01) ==
LOC: RAD 11:36
PROVIDERS: ATTEND Family Medicine
DX: C78.7 Secondary malignant neoplasm of liver and intrahepatic bile duct (principal); K43.9 Ventral hernia without obstruction or gangrene; K44.9 Diaphragmatic hernia without obstruction or gangrene; N20.0 Calculus of kidney; I70.0 Atherosclerosis of aorta; K57.30 Diverticulosis of large intestine without perforation or abscess without bleeding
CPT/HCPCS: 74176; 82565

== ENCOUNTER 2020-01-30 06:01 | Day surgery (SDC) | payer MEDICARE ==
[~2020-01-30] VITALS: Ht 170.2 cm; Wt 94.0 kg
[2020-01-30 07:22] VITALS: BP 153/91
[2020-01-30] MEDS ORDERED: SODIUM CHLORIDE 0.9% 1,000 ML IV SCH (07:30)
[2020-01-30 07:50] LABS: INTERNATIONAL NORMALIZED RATIO 1.17 (0.93-1.1); PROTHROMBIN TIME 12.4 Seconds (9.6-11.5)
[2020-01-30] MEDS ORDERED: FENTANYL PF 100 MCG/2ML ONE (08:00)
[2020-01-30] MEDS ORDERED: FLUMAZENIL 0.1 MG/1 ML, 5ML ONE (08:00)
[2020-01-30] MEDS ORDERED: MIDAZOLAM 1 MG/ML, 5ML ONE (08:00)
[2020-01-30] MEDS ORDERED: NALOXONE 1 MG/ML, 2ML ONE (08:01)
== END 2020-01-30 11:00 | disposition home or self-care (01) ==
LOC: OUT 06:01
PROVIDERS: ATTEND Specialist
DX: R16.0 Hepatomegaly, not elsewhere classified (principal); C22.7 Other specified carcinomas of liver; C25.3 Malignant neoplasm of pancreatic duct; I10 Essential (primary) hypertension; H40.9 Unspecified glaucoma; I48.91 Unspecified atrial fibrillation; F32.9 Major depressive disorder, single episode, unspecified; M06.9 Rheumatoid arthritis, unspecified; K21.9 Gastro-esophageal reflux disease without esophagitis; K44.9 Diaphragmatic hernia without obstruction or gangrene; Z79.899 Other long term (current) drug therapy; Z88.1 Allergy status to other antibiotic agents; Z91.041 Radiographic dye allergy status; Z91.013 Allergy to seafood; Z88.8 Allergy status to other drugs, medicaments and biological substances; Z91.018 Allergy to other foods; Z91.048 Other nonmedicinal substance allergy status; Z72.89 Other problems related to lifestyle; Z96.643 Presence of artificial hip joint, bilateral; Z96.652 Presence of left artificial knee joint; Z82.49 Family history of ischemic heart disease and other diseases of the circulatory system
CPT/HCPCS: 36415; 47000; 71250; 77012; 85610; 88307; 99156; J2250; J3010; J7030; 99157; J2310

== ENCOUNTER → 2020-02-15 | Outpatient (CLI) | payer MEDICARE | END | disposition home or self-care (01) | LOC: RAD 11:20 | PROVIDERS: ATTEND Specialist | DX: C25.2 Malignant neoplasm of tail of pancreas (principal); I82.811 Embolism and thrombosis of superficial veins of right lower extremity ==